=== PATIENT | male | born 1945 | race Caucasian/White ===

== ENCOUNTER 2017-01-21 11:28 | Inpatient (IN) | payer MEDICARE, OTHER ==
[~2017-01-21] VITALS: Ht 180.3 cm; Wt 95.1 kg
[~2017-01-21 11:28] MED LIST: ALBU0.63 NEB; FLUT1BLS INH; FURO20TA3 PO; INSU100I18 SQ-INSULIN; INSU100I28 SQ-INSULIN; IPRA3AMP NPPB; LISI5TAB7 PO; PRED20TA PO; TIOT18CA INH
[2017-01-21] MEDS ORDERED: SODIUM CHLORIDE FLUSH 10ML SYR IVF ONE (12:00)
[2017-01-21 12:43] LABS: ASPARTATE AMINO TRANSFERASE 10 U/L (15-37); BLOOD UREA NITROGEN 19 mg/dL (7-18)
[2017-01-21 12:55] LABS: IS PT STATUS REG ER OR PRE ER? YES
[2017-01-21 13:14] LABS: ABG COLLECTION SITE LEFT RADIAL; COLLATERAL CIRCULATION TESTING NORMAL
[2017-01-21] MEDS ORDERED: PIOG15TA4 PO (13:50)
[2017-01-21] MEDS ORDERED: MELO-184 PO (13:50)
[2017-01-21] MEDS ORDERED: BETA15OI4 TP (13:50)
[2017-01-21] MEDS ORDERED: METF10002 PO (13:50)
[2017-01-21] MEDS ORDERED: NATE120T2 PO (13:50)
[2017-01-21] MEDS ORDERED: ASPI-496 PO (13:50)
[2017-01-21] MEDS ORDERED: LORazepam 2 MG/ML, 1ML IVPush PRN (14:30)
[2017-01-21] MEDS ORDERED: LABETALOL 5MG/ML, 20ML IV PRN (14:30)
[2017-01-21] MEDS ORDERED: ACETAMINOPHEN 325 MG TABLET PO PRN (14:30)
[2017-01-21] MEDS ORDERED: POLYETHYLENE GLYCOL 17 GM PACKET PO PRN (14:30)
[2017-01-21] MEDS ORDERED: ONDANSETRON 2MG/ML, 2ML IVP PRN (14:30)
[2017-01-21] MEDS ORDERED: TEMAZEPAM 15 MG CAPSULE PO PRN (14:30)
[2017-01-21] MEDS ORDERED: OXYcodone IR 5MG TABLET PO PRN (14:30)
[2017-01-21] MEDS ORDERED: MORPHINE SULFATE 4 MG/ML, 1ML IVPush PRN (14:30)
[2017-01-21] MEDS ORDERED: ALBUTEROL/IPRATROPIUM 2.5MG/0.5MG, 3 ML ONE (14:49)
[2017-01-21] MEDS: ALBUTEROL/IPRATROPIUM 2.5MG/0.5MG, 3 ML NPPB SCH ×3 (15:02→23:25)
[2017-01-21 15:29] VITALS: BP 147/56
[2017-01-21] MEDS: ENOXAPARIN 40 MG/0.4 ML SQ SCH (15:57)
[2017-01-21] MEDS: methylPREDNISolone SOD SUCC 125 MG/2 ML IVPush SCH ×2 (15:58→19:41)
[2017-01-21] MEDS: DOXYCYCLINE 100 MG in DEXTROSE 5% 250 ML IV SCH (15:58)
[2017-01-21] MEDS: SODIUM CHLORIDE 0.9% 1,000 ML IV SCH (15:58)
[2017-01-21] MEDS: NICOTINE 21 MG/24 HR PATCH.TD24 TD SCH (15:58)
[2017-01-21] MEDS ORDERED: INSULIN REGULAR 100 UNITS/ML, 3ML VIAL SQ-INSULIN SCH (16:00)
[2017-01-21] MEDS: NATEGLINIDE 120 MG TABLET PO SCH ×3 (16:21→20:53)
[2017-01-21 16:31] LABS: ABG COLLECTION SITE RIGHT RADIAL; COLLATERAL CIRCULATION TESTING NORMAL
[2017-01-21 18:36] LABS: IS PT STATUS REG ER OR PRE ER? NO
[2017-01-21 18:43] LABS: RAPID INFLUENZA A Negative (Negative); RAPID INFLUENZA B Negative (Negative)
[2017-01-21] MEDS: metFORMIN 500 MG TABLET PO SCH (20:52)
[2017-01-21] MEDS: INSULIN REGULAR 100 UNITS/ML, 3ML VIAL SQ-INSULIN SCH (22:00)
[2017-01-22 01:06] LABS: IS PT STATUS REG ER OR PRE ER? NO
[2017-01-22] MEDS: methylPREDNISolone SOD SUCC 125 MG/2 ML IVPush SCH ×4 (01:55→20:43)
[2017-01-22] MEDS: DOXYCYCLINE 100 MG in DEXTROSE 5% 250 ML IV SCH ×2 (02:00→14:06)
[2017-01-22] MEDS: ALBUTEROL/IPRATROPIUM 2.5MG/0.5MG, 3 ML NPPB SCH ×6 (03:02→23:17)
[2017-01-22] MEDS: SODIUM CHLORIDE 0.9% 1,000 ML IV SCH (03:34)
[2017-01-22] MEDS: INSULIN REGULAR 100 UNITS/ML, 3ML VIAL SQ-INSULIN SCH ×4 (03:58→20:46)
[2017-01-22 04:00] VITALS: BP 131/73
[2017-01-22 05:13] LABS: ASPARTATE AMINO TRANSFERASE 14 U/L (15-37); BLOOD UREA NITROGEN 19 mg/dL (7-18)
[2017-01-22 06:29] LABS: ABG COLLECTION SITE RIGHT RADIAL; COLLATERAL CIRCULATION TESTING NORMAL
[2017-01-22] MEDS: MELOXICAM 15 MG TABLET PO SCH (08:56)
[2017-01-22] MEDS: FUROSEMIDE 20 MG TABLET PO SCH (08:56)
[2017-01-22] MEDS: PANTOPROZOLE 40MG TABLET PO SCH (08:56)
[2017-01-22] MEDS: NATEGLINIDE 120 MG TABLET PO SCH ×3 (08:56→20:44)
[2017-01-22] MEDS: ASPIRIN 81 MG TABLET EC PO SCH (08:56)
[2017-01-22] MEDS: LISINOPRIL 5 MG TABLET PO SCH (08:57)
[2017-01-22] MEDS: SENNA/DOCUSATE TABLET PO SCH (08:57)
[2017-01-22] MEDS: FLUTICASONE/VILANTEROL 200-25MCG/INH INH SCH (09:02)
[2017-01-22] MEDS: PIOGLITAZONE 15 MG TABLET PO SCH (09:44)
[2017-01-22] MEDS: metFORMIN 500 MG TABLET PO SCH ×2 (09:48→22:14)
[2017-01-22] MEDS: NICOTINE 21 MG/24 HR PATCH.TD24 TD SCH (14:06)
[2017-01-22] MEDS: ENOXAPARIN 40 MG/0.4 ML SQ SCH (14:06)
[2017-01-23] MEDS: ALBUTEROL/IPRATROPIUM 2.5MG/0.5MG, 3 ML NPPB SCH ×6 (02:03→22:55)
[2017-01-23] MEDS: methylPREDNISolone SOD SUCC 125 MG/2 ML IVPush SCH ×4 (02:10→20:50)
[2017-01-23] MEDS: DOXYCYCLINE 100 MG in DEXTROSE 5% 250 ML IV SCH ×2 (02:11→15:14)
[2017-01-23 04:00] VITALS: BP 125/58
[2017-01-23 05:00] LABS: BLOOD UREA NITROGEN 27 mg/dL (7-18)
[2017-01-23] MEDS: LISINOPRIL 5 MG TABLET PO SCH (08:32)
[2017-01-23] MEDS: metFORMIN 500 MG TABLET PO SCH ×2 (08:33→20:50)
[2017-01-23] MEDS: PANTOPROZOLE 40MG TABLET PO SCH (08:33)
[2017-01-23] MEDS: FUROSEMIDE 20 MG TABLET PO SCH (08:33)
[2017-01-23] MEDS: ASPIRIN 81 MG TABLET EC PO SCH (08:33)
[2017-01-23] MEDS: INSULIN REGULAR 100 UNITS/ML, 3ML VIAL SQ-INSULIN SCH ×4 (08:35→20:53)
[2017-01-23] MEDS: SENNA/DOCUSATE TABLET PO SCH (08:35)
[2017-01-23] MEDS: FLUTICASONE/VILANTEROL 200-25MCG/INH INH SCH (08:38)
[2017-01-23] MEDS: MELOXICAM 15 MG TABLET PO SCH (12:58)
[2017-01-23] MEDS: NATEGLINIDE 120 MG TABLET PO SCH ×3 (12:59→20:50)
[2017-01-23] MEDS: PIOGLITAZONE 15 MG TABLET PO SCH (13:00)
[2017-01-23] MEDS: ENOXAPARIN 40 MG/0.4 ML SQ SCH (15:15)
[2017-01-23] MEDS: NICOTINE 21 MG/24 HR PATCH.TD24 TD SCH (15:16)
[2017-01-23] MEDS: MICONAZOLE CRM 2%, 15GM TP SCH (20:55)
[2017-01-24] MEDS: ALBUTEROL/IPRATROPIUM 2.5MG/0.5MG, 3 ML NPPB SCH ×6 (01:56→21:08)
[2017-01-24] MEDS: DOXYCYCLINE 100 MG in DEXTROSE 5% 250 ML IV SCH ×3 (02:29→14:29)
[2017-01-24] MEDS: methylPREDNISolone SOD SUCC 125 MG/2 ML IVPush SCH ×4 (02:30→21:10)
[2017-01-24 04:00] VITALS: BP 126/64
[2017-01-24 04:39] LABS: BLOOD UREA NITROGEN 38 mg/dL (7-18)
[2017-01-24] MEDS: FUROSEMIDE 20 MG TABLET PO SCH (07:42)
[2017-01-24] MEDS: INSULIN REGULAR 100 UNITS/ML, 3ML VIAL SQ-INSULIN SCH ×4 (07:42→21:00)
[2017-01-24] MEDS: PANTOPROZOLE 40MG TABLET PO SCH (07:42)
[2017-01-24] MEDS: NATEGLINIDE 120 MG TABLET PO SCH ×3 (08:39→21:11)
[2017-01-24] MEDS: SENNA/DOCUSATE TABLET PO SCH (08:39)
[2017-01-24] MEDS: metFORMIN 500 MG TABLET PO SCH ×2 (08:39→21:11)
[2017-01-24] MEDS: LISINOPRIL 5 MG TABLET PO SCH (08:39)
[2017-01-24] MEDS: PIOGLITAZONE 15 MG TABLET PO SCH (08:39)
[2017-01-24] MEDS: MELOXICAM 15 MG TABLET PO SCH (08:39)
[2017-01-24] MEDS: ASPIRIN 81 MG TABLET EC PO SCH (08:39)
[2017-01-24] MEDS: FLUTICASONE/VILANTEROL 200-25MCG/INH INH SCH (08:40)
[2017-01-24] MEDS: MICONAZOLE CRM 2%, 15GM TP SCH ×3 (09:26→21:11)
[2017-01-24] MEDS: ENOXAPARIN 40 MG/0.4 ML SQ SCH (13:54)
[2017-01-24] MEDS: NICOTINE 21 MG/24 HR PATCH.TD24 TD SCH (13:54)
[2017-01-24 17:11] VITALS: BP 142/68
[2017-01-24 20:00] VITALS: BP 124/66
[2017-01-25] MEDS: methylPREDNISolone SOD SUCC 125 MG/2 ML IVPush SCH ×4 (01:49→21:33)
[2017-01-25] MEDS: DOXYCYCLINE 100 MG in DEXTROSE 5% 250 ML IV SCH ×2 (01:51→14:39)
[2017-01-25] MEDS ORDERED: ALBUTEROL/IPRATROPIUM 2.5MG/0.5MG, 3 ML NPPB PRN (03:30)
[2017-01-25 04:00] VITALS: BP 148/72
[2017-01-25 06:27] LABS: BLOOD UREA NITROGEN 40 mg/dL (7-18)
[2017-01-25] MEDS: INSULIN REGULAR 100 UNITS/ML, 3ML VIAL SQ-INSULIN SCH ×4 (07:00→21:34)
[2017-01-25 07:25] VITALS: BP 144/77
[2017-01-25] MEDS: LISINOPRIL 5 MG TABLET PO SCH (08:08)
[2017-01-25] MEDS: SENNA/DOCUSATE TABLET PO SCH (08:08)
[2017-01-25] MEDS: PANTOPROZOLE 40MG TABLET PO SCH (08:09)
[2017-01-25] MEDS: ASPIRIN 81 MG TABLET EC PO SCH (08:09)
[2017-01-25] MEDS: MELOXICAM 15 MG TABLET PO SCH (08:09)
[2017-01-25] MEDS: NATEGLINIDE 120 MG TABLET PO SCH ×3 (08:09→21:33)
[2017-01-25] MEDS: PIOGLITAZONE 15 MG TABLET PO SCH (08:09)
[2017-01-25] MEDS: metFORMIN 500 MG TABLET PO SCH ×2 (08:09→21:33)
[2017-01-25] MEDS: FUROSEMIDE 20 MG TABLET PO SCH (08:09)
[2017-01-25] MEDS: FLUTICASONE/VILANTEROL 200-25MCG/INH INH SCH (08:09)
[2017-01-25] MEDS: MICONAZOLE CRM 2%, 15GM TP SCH ×3 (08:10→21:33)
[2017-01-25 13:06] VITALS: BP 129/68
[2017-01-25] MEDS: NICOTINE 21 MG/24 HR PATCH.TD24 TD SCH (14:40)
[2017-01-25] MEDS: ENOXAPARIN 40 MG/0.4 ML SQ SCH (14:40)
[2017-01-25 20:00] VITALS: BP 124/63
[2017-01-26 02:00] VITALS: BP 152/76
[2017-01-26] MEDS: DOXYCYCLINE 100 MG in DEXTROSE 5% 250 ML IV SCH ×2 (02:35→16:36)
[2017-01-26] MEDS: methylPREDNISolone SOD SUCC 125 MG/2 ML IVPush SCH ×3 (02:35→16:36)
[2017-01-26] MEDS: INSULIN REGULAR 100 UNITS/ML, 3ML VIAL SQ-INSULIN SCH ×3 (07:00→16:00)
[2017-01-26 07:27] VITALS: BP 152/67
[2017-01-26] MEDS: SENNA/DOCUSATE TABLET PO SCH (09:00)
[2017-01-26] MEDS: MICONAZOLE CRM 2%, 15GM TP SCH ×3 (09:00→16:00)
[2017-01-26] MEDS: ASPIRIN 81 MG TABLET EC PO SCH (09:25)
[2017-01-26] MEDS: FLUTICASONE/VILANTEROL 200-25MCG/INH INH SCH (09:25)
[2017-01-26] MEDS: FUROSEMIDE 20 MG TABLET PO SCH (09:25)
[2017-01-26] MEDS: metFORMIN 500 MG TABLET PO SCH (09:25)
[2017-01-26] MEDS: LISINOPRIL 5 MG TABLET PO SCH (09:25)
[2017-01-26] MEDS: MELOXICAM 15 MG TABLET PO SCH (09:26)
[2017-01-26] MEDS: PANTOPROZOLE 40MG TABLET PO SCH (09:26)
[2017-01-26] MEDS: NATEGLINIDE 120 MG TABLET PO SCH ×2 (09:26→16:36)
[2017-01-26] MEDS: PIOGLITAZONE 15 MG TABLET PO SCH (09:26)
[2017-01-26 13:04] VITALS: BP 123/66
[2017-01-26] MEDS ORDERED: DOXY100T PO (16:19)
[2017-01-26] MEDS: ENOXAPARIN 40 MG/0.4 ML SQ SCH (16:36)
[2017-01-26] MEDS: NICOTINE 21 MG/24 HR PATCH.TD24 TD SCH (16:36)
== END 2017-01-26 18:46 | disposition home or self-care (01) | DRG 189 ==
LOC: ED 12:25 → EDIP 13:27 → CCU 14:38 → 4WST 01-24 17:01
PROVIDERS: ADMIT Internal Medicine; ATTEND Internal Medicine
PROC: 5A09457 Assistance with Respiratory Ventilation, 24-96 Consecutive Hours, Continuous Positive Airway Pressure (ICD-10-PCS; principal; 2017-01-21)
DX: J96.22 Acute and chronic respiratory failure with hypercapnia (principal); G93.41 Metabolic encephalopathy; J44.1 Chronic obstructive pulmonary disease with (acute) exacerbation; E87.2 Acidosis; I50.9 Heart failure, unspecified; I11.0 Hypertensive heart disease with heart failure; E66.9 Obesity, unspecified; E11.649 Type 2 diabetes mellitus with hypoglycemia without coma; B35.0 Tinea barbae and tinea capitis; F17.210 Nicotine dependence, cigarettes, uncomplicated; H92.23 Otorrhagia, bilateral; E11.51 Type 2 diabetes mellitus with diabetic peripheral angiopathy without gangrene; R29.6 Repeated falls; Z82.49 Family history of ischemic heart disease and other diseases of the circulatory system; Z91.19 Patient's noncompliance with other medical treatment and regimen; Z79.52 Long term (current) use of systemic steroids; Z99.81 Dependence on supplemental oxygen; Z87.01 Personal history of pneumonia (recurrent); Y93.89 Activity, other specified; Z87.828 Personal history of other (healed) physical injury and trauma; Z79.899 Other long term (current) drug therapy; Z79.82 Long term (current) use of aspirin; Z68.29 Body mass index [BMI] 29.0-29.9, adult
CPT/HCPCS: 36415; 36600; 70450; 71010; 80048; 80053; 80307; 82803; 82962; 83036; 83735; 83880; 84100; 84443; 84484; 85025; 85610; 87081; 87400; 93005; 93306; 94640; 94660; J1650; J1815; J7060; J7620; J2930; J7030